=== PATIENT | female | born 1945 | race Caucasian/White ===

== ENCOUNTER → 2017-01-18 | Outpatient (CLI) | payer OTHER ==
[~2017-01-18] MED LIST: ACYC400T PO; ERYT1OIN7 OP; LISI-660 PO; METH4TAB16 PO; OMEG300C3 PO; PRED10TA3 PO; PRED20TA3 PO; SIMV5TAB6 PO
== END | disposition home or self-care (01) ==
LOC: RADPV 13:49
PROVIDERS: ATTEND Orthopaedic Surgery
DX: M19.042 Primary osteoarthritis, left hand (principal); M19.041 Primary osteoarthritis, right hand; M25.442 Effusion, left hand; M25.441 Effusion, right hand; M25.742 Osteophyte, left hand; M25.741 Osteophyte, right hand